=== PATIENT | female | born 2000 | race Caucasian/White ===

== ENCOUNTER 2022-12-07 23:52 | Day surgery (SDC) | payer OTHER ==
[2022-12-08 00:44] LABS: Fetal Membranes Rupture No Membranes Rupture (No Rupture)
[2022-12-08 00:58] VITALS: BMI 24.3
== END 2022-12-08 01:10 | disposition home or self-care (01) ==
LOC: CSHLD/OP 23:52
PROVIDERS: ATTEND Emergency Medicine
DX: O42.913 Preterm premature rupture of membranes, unspecified as to length of time between rupture and onset of labor, third trimester (principal); O99.013 Anemia complicating pregnancy, third trimester; D64.9 Anemia, unspecified; Z67.91 Unspecified blood type, Rh negative; Z79.899 Other long term (current) drug therapy; O23.593 Infection of other part of genital tract in pregnancy, third trimester; Z3A.36 36 weeks gestation of pregnancy
CPT/HCPCS: 80053; 84112; 85025; 85610; 85730; 87480; 87510; 87660; 99284

== ENCOUNTER 2022-12-31 19:00 | Inpatient (IN) | payer OTHER ==
[~2022-12-31 19:00] MED LIST: Bupivacaine 0.25% HCL 30 ML VIAL ONE
[2022-12-31 22:35] VITALS: BMI 26.1
[2022-12-31] MEDS: Lactated Ringer's 1,000 ML IV SCH (22:40)
[2022-12-31] MEDS ORDERED: Ondansetron PF 4 MG/2 ML Vial IVP PRN (22:48)
[2022-12-31] MEDS ORDERED: Promethazine HCl 25 MG/ML VIAL IM PRN (22:48)
[2022-12-31] MEDS ORDERED: Carboprost 250 MCG/ML AMP IM PRN (22:48)
[2022-12-31] MEDS ORDERED: hydrALAZINE 20 MG/ML VIAL SLOW IVP PRN (22:48)
[2022-12-31] MEDS ORDERED: Lidocaine 1% (PF) 30 ML VIAL SC PRN (22:48)
[2022-12-31] MEDS ORDERED: Tranexamic Acid 1,000 MG/10 ML VIAL IVP PRN (22:48)
[2022-12-31] MEDS ORDERED: Misoprostol 200 MCG TAB PR PRN (22:48)
[2022-12-31] MEDS ORDERED: Diphenoxylate HCl/Atropine Tablet PO PRN (22:48)
[2022-12-31] MEDS ORDERED: Methylergonovine 0.2 MG/ML VIAL IM PRN (22:48)
[2022-12-31] MEDS ORDERED: Acetaminophen 500 MG TAB PO PRN (22:48)
[2022-12-31] MEDS ORDERED: Docusate 100 MG CAP PO PRN (22:48)
[2022-12-31] MEDS ORDERED: Oxytocin 30 units/NS 500 ML 500 ML IV SCH ×2 (23:00)
[2022-12-31] MEDS: Misoprostol 100 MCG TAB VAG SCH (23:20)
[2022-12-31 23:23] LABS: Hematocrit 31.5 % (34.9-44.5); Hemoglobin 10.4 g/dL (12.0-15.5); Mean Corpuscular Hemoglobin 27.4 pg (27.0-33.0); Mean Corpuscular Volume 82.9 fl (81.6-98.3); Mean Platelet Volume 13.7 fl (7.4-10.4); Platelet Count 166 10x3/uL (150-450); RBC Distribution Width 13.8 % (11.5-14.5); White Blood Cell (WBC) Count 7.9 10x3/uL (3.5-10.5)
[2022-12-31 23:50] LABS: HBSAg Index 0.18 S/CO (0-0.99); Hep B Surf Ag - L&D Non-Reactive S/CO (NonReactive)
[2023-01-01 00:22] LABS: Syphilis Antibody Nonreactive (Nonreactive); Syphilis Antibody Index 0.04 S/CO (<1.00 Non-Reactive)
[2023-01-01] MEDS: Misoprostol 100 MCG TAB VAG SCH ×2 (02:00→05:48)
[2023-01-01] MEDS: Lactated Ringer's 1,000 ML IV SCH (05:56)
[2023-01-01] MEDS ORDERED: fentaNYL 50 mcg/mL 1 mL Vial SLOW IVP SCH (06:00)
[2023-01-01] MEDS ORDERED: fentaNYL/Ropivacaine Epidural 100 ML ONE (06:04)
[2023-01-01] MEDS ORDERED: Acetaminophen 325 MG TAB PO PRN (08:18)
[2023-01-01] MEDS ORDERED: Moisturizing Cream (Eucerin) 113 GM JAR TOP PRN (08:18)
[2023-01-01] MEDS ORDERED: Naloxone HCl 0.4 mg/ml Vial IVP PRN ×2 (08:18)
[2023-01-01] MEDS ORDERED: ePHEDrine Sulfate 50 MG/10 ML VIAL SLOW IVP PRN (08:18)
[2023-01-01] MEDS ORDERED: diphenhydrAMINE 50 MG/ML VIAL IVP PRN (08:18)
[2023-01-01] MEDS ORDERED: Promethazine HCl 25 MG/ML VIAL IM PRN (08:18)
[2023-01-01] MEDS ORDERED: Lactated Ringer's 500 ML IV PRN (08:18)
[2023-01-01] MEDS ORDERED: Ondansetron PF 4 MG/2 ML Vial IVP PRN (08:18)
[2023-01-01] MEDS ORDERED: ACTIVE EPIDURAL FS PRN (08:30)
[2023-01-01] MEDS ORDERED: fentaNYL 2 mcg/Ropivacaine 0.2% Epidural 100 ML CADD EPIDURAL SCH (08:30)
[2023-01-01] MEDS ORDERED: Ibuprofen 800 MG TAB PO SCH (18:30)
[2023-01-01] MEDS ORDERED: Lanolin Ointment 7 GM TUBE TOP PRN (18:58)
[2023-01-01] MEDS ORDERED: Benzocaine-Menthol 82.5 ML CAN TOP PRN (18:58)
[2023-01-01] MEDS ORDERED: Boostrix 0.5 ML (Tdap) VIAL (>/=7 yrs of age) IM ONE (18:58)
[2023-01-01] MEDS ORDERED: Bisacodyl 10 MG SUPP PR PRN (18:58)
[2023-01-01] MEDS ORDERED: Ferrous Sulfate 325 MG TAB PO SCH (18:58)
[2023-01-01] MEDS ORDERED: Preparation H Ointment 28 GM TUBE PR PRN (18:58)
[2023-01-01] MEDS ORDERED: Milk Of Magnesia 30 ML UDCUP PO PRN (18:58)
[2023-01-01] MEDS ORDERED: diphenhydrAMINE 25 MG CAP PO PRN (18:58)
[2023-01-01] MEDS ORDERED: hydrALAZINE 20 MG/ML VIAL SLOW IVP PRN (18:58)
[2023-01-01] MEDS: Ibuprofen 800 MG TAB PO SCH (22:10)
[2023-01-01] MEDS: Docusate 100 MG CAP PO SCH (22:10)
[2023-01-02] MEDS: Ibuprofen 800 MG TAB PO SCH ×3 (04:57→21:43)
[2023-01-02] MEDS: Ferrous Sulfate 325 MG TAB PO SCH ×2 (07:58→16:21)
[2023-01-02] MEDS: Docusate 100 MG CAP PO SCH ×2 (08:00→21:41)
[2023-01-02] MEDS: Prenatal Vitamin 1 TAB PO SCH (08:00)
[2023-01-02] MEDS: Misoprostol 100 MCG TAB VAG SCH (08:07)
[2023-01-02] MEDS: Lactated Ringer's 1,000 ML IV SCH (08:07)
[2023-01-03] MEDS: Ibuprofen 800 MG TAB PO SCH ×2 (05:20→08:21)
[2023-01-03 07:59] VITALS: BP 99/50; TEMP 98.3
[2023-01-03] MEDS: Docusate 100 MG CAP PO SCH (08:17)
[2023-01-03] MEDS: Prenatal Vitamin 1 TAB PO SCH (08:18)
[2023-01-03] MEDS: Ferrous Sulfate 325 MG TAB PO SCH (08:22)
== END 2023-01-03 11:30 | disposition home or self-care (01) | DRG 807 ==
LOC: CSHLD 22:18 → CSHPP 01-01 19:30
PROVIDERS: ADMIT Obstetrics & Gynecology; ATTEND Obstetrics & Gynecology
PROC: 10E0XZZ Delivery of Products of Conception, External Approach (ICD-10-PCS; principal; 2022-12-31)
PROC: 3E0334Z Introduction of Serum, Toxoid and Vaccine into Peripheral Vein, Percutaneous Approach (ICD-10-PCS; 2022-12-31)
PROC: 3E033VJ Introduction of Other Hormone into Peripheral Vein, Percutaneous Approach (ICD-10-PCS; 2022-12-31)
PROC: 3E033XZ Introduction of Vasopressor into Peripheral Vein, Percutaneous Approach (ICD-10-PCS; 2022-12-31)
DX: O99.02 Anemia complicating childbirth (principal); Z37.0 Single live birth; Z3A.39 39 weeks gestation of pregnancy; D50.9 Iron deficiency anemia, unspecified; O26.893 Other specified pregnancy related conditions, third trimester; Z67.11 Type A blood, Rh negative; O32.8XX0 Maternal care for other malpresentation of fetus, not applicable or unspecified
CPT/HCPCS: 36415; 51702; 85027; 85461; 86780; 86850; 86900; 86901; 87340; 90384; 96372; J2590; J3010; J7120; S0020